=== PATIENT | male | born 1990 | race Two or more races ===

== ENCOUNTER 2020-02-08 16:27 | Emergency (ER) | payer SELFPAY ==
[~2020-02-08] VITALS: Ht 180.3 cm; Wt 75.0 kg
[2020-02-08 16:29] VITALS: BP 146/86
== END 2020-02-08 16:58 | disposition home or self-care (01) ==
LOC: ER 16:27
DX: K29.70 Gastritis, unspecified, without bleeding (principal); Z91.011 Allergy to milk products
CPT/HCPCS: 99282